=== PATIENT | male | born 1960 | race Caucasian/White ===

== ENCOUNTER 2021-09-16 13:51 | Inpatient (IN) | payer OTHER ==
[~2021-09-16] VITALS: Ht 182.9 cm; Wt 132.4 kg
[~2021-09-16 13:51] MED LIST: AUGMENTIN 875875 M1; PERCOCET 5-3251 EACH
[2021-09-16 14:00] VITALS: BP 128/93
[2021-09-16 14:47] LABS: ABSOLUTE LYMPHOCYTES 0.6 thou/uL (0.8-5.3); ABSOLUTE MONOCYTES 0.4 thou/uL (0.0-1.2); ABSOLUTE NEUTROPHILS 5.4 thou/uL (1.6-8.1); BASOPHILS 0.3 %; EOSINOPHILS 0.1 %; HEMATOCRIT 48.8 % (42.0-52.0); HEMOGLOBIN 16.7 gm/dL (14.0-18.0); LYMPHOCYTES 9.7 %; MCH 29.3 pg (26.0-34.0); MCHC 34.2 g/dL (28.0-37.0); MCV 85.7 fL (80.0-100.0); MONOCYTES 6.6 %; MPV 8.5 fl. (7.2-11.1); NUCLEATED RBCS 0 /100WBC; PLATELET COUNT* 242 thou/uL (150-400); POLYS 83.3 %; RBC 5.69 mil/uL (4.50-6.00); RDW-CV 15.4 % (10.5-14.5); WBC 6.4 thou/uL (4.0-11.0)
[2021-09-16 14:57] LABS: CALCIUM 8.6 mg/dL (8.5-10.1); CREATININE 1.2 mg/dL (0.6-1.3); POTASSIUM 3.4 mmol/L (3.5-5.1)
--- NOTE | 2021-09-16 15:01 | EKG ---
[place] [address] ELECTROCARDIOGRAM REPORT Name: CAITLIN DASILVA JR Room: [facility] M.R.#: [id number] Admission: Attend Phys: Discharge: Date of : 58 Date of Service: 09/16/21 1446 Report #: [id number] THIS REPORT FOR: //name// 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
[2021-09-16 15:08] LABS: ALBUMIN 3.2 g/dL (3.4-5.0); TOTAL PROTEIN 7.9 g/dL (6.4-8.2)
[2021-09-17] VITALS (8 sets, daily range): BP systolic 103–137; BP diastolic 65–83
[2021-09-18 04:00] VITALS: BP 128/81
[2021-09-18 08:00] VITALS: BP 146/86
[2021-09-18 12:00] VITALS: BP 125/80
[2021-09-18 16:00] VITALS: BP 132/78
[2021-09-18 19:30] VITALS: BP 123/78
[2021-09-19] VITALS (7 sets, daily range): BP systolic 126–172; BP diastolic 69–94
[2021-09-20 03:52] VITALS: BP 152/86
[2021-09-20 08:01] VITALS: BP 139/80
[2021-09-20 12:00] VITALS: BP 148/90
[2021-09-20] MEDS ORDERED: CHOLESTYRAMINE P4 GM PO (14:37)
[2021-09-20] MEDS ORDERED: DOXYCYCLINE 10100 MG PO (14:37)
[2021-09-20] MEDS ORDERED: VITAMIN D325 MC2 PO (14:37)
[2021-09-20] MEDS ORDERED: DEXAMETHASONE1 MG PO (14:37)
[2021-09-20] MEDS ORDERED: ADVAIR 100-501 EACH INH (14:37)
[2021-09-20] MEDS ORDERED: PROAIR HFA8.5 GM INH (14:37)
[2021-09-20 15:19] VITALS: BP 148/90
== END 2021-09-20 18:22 | disposition home health service (06) | DRG 177 ==
LOC: M.ERS 13:51 → M.ORTHSURG 15:42 → M.TBA-ER 15:42 → M.ORTHSURG 09-17 11:03
PROVIDERS: Emergency Medicine Emergency Medical Services; ADMIT Internal Medicine; ATTEND Internal Medicine
PROC: 5A0935A Assistance with Respiratory Ventilation, Less than 24 Consecutive Hours, High Flow/Velocity Cannula (ICD-10-PCS; principal; 2021-09-17)
PROC: 5A0935A Assistance with Respiratory Ventilation, Less than 24 Consecutive Hours, High Flow/Velocity Cannula (ICD-10-PCS; 2021-09-18)
DX: U07.1 COVID-19 (principal); J96.01 Acute respiratory failure with hypoxia; J44.9 Chronic obstructive pulmonary disease, unspecified; M17.10 Unilateral primary osteoarthritis, unspecified knee; I10 Essential (primary) hypertension; G47.33 Obstructive sleep apnea (adult) (pediatric); F17.200 Nicotine dependence, unspecified, uncomplicated; E66.01 Morbid (severe) obesity due to excess calories; Z82.49 Family history of ischemic heart disease and other diseases of the circulatory system; Z68.39 Body mass index [BMI] 39.0-39.9, adult